=== PATIENT | male | born 1955 | race African-American/Black ===

== ENCOUNTER → 2018-03-06 | Outpatient (CLI) | payer SELFPAY ==
--- NOTE | 2018-03-06 14:45 | Diagnostic Imaging Report ---
Exam: Brain MRI without IV contrast History: Headache Comparison studies: None Technique: Sagittal and axial T2 FS, axial DWI, axial T2*GRE, axial T1 FLAIR and axial coronal T2 FLAIR. Intravenous contrast: None Findings: Scalp: Normal in signal. No masses. Bone marrow: Normal in signal intensity. Brain sulci: Appropriate for age. Ventricles: Mild compensatory dilatation. There is an anatomical variant cavum septum pellucid and cavum vergae. Extra axial spaces: No mass, no fluid collection. Parenchyma: No mass, hemorrhage or acute ischemia. A few scattered and mildly confluent T2 FLAIR hyperintense foci in the supratentorial white matter are nonspecific most compatible with chronic microvascular ischemic changes. Suprasellar region: No abnormalities. Craniocervical junction: Patent foramen magnum. No Chiari malformation. Vessels: Normal flow-voids in the arteries and sinuses. Incidental findings: Moderate nonspecific inflammatory mucosal thickening in the left maxillary sinus with small layering hyperdense. Mild mucosal thickening in the ethmoids and right maxillary sinus. IMPRESSION: 1. Mild generalized volume loss. 2. Moderate chronic microvascular ischemic changes. 3. Inflammatory changes in the paranasal sinuses. Signed by: Dr. Jaya Perez M.D. on 03/06/2018 2:41 PM
== END ==
LOC: MRI 11:07
PROVIDERS: ATTEND Emergency Medicine
DX: G43.909 Migraine, unspecified, not intractable, without status migrainosus (principal)
CPT/HCPCS: 70551

== ENCOUNTER → 2021-12-10 | Outpatient (CLI) | payer MEDICARE ==
[2021-12-10 12:33] LABS: BASOPHILS % 0.6 % (0.0-1.0); EOSINOPHILS % 14.8 % (0.0-6.0); HEMATOCRIT 40.1 % (38.2-49.6); HEMOGLOBIN 11.8 g/dL (14.0-18.0); LYMPHOCYTES # (AUTO) 2.4 (1.0-3.2); LYMPHOCYTES % 35.6 % (18.0-39.1); MEAN CORPUSCULAR HEMOGLOBIN 22.7 pg (28-32); MEAN CORPUSCULAR HGB CONC 29.4 g/dL (31-35); MEAN CORPUSCULAR VOLUME 77.1 fL (81-99); MONOCYTES # (AUTO) 0.7 (0.2-0.8); MONOCYTES % 10.3 % (4.4-11.3); NEUTROPHILS # (AUTO) 2.6 (2.1-6.9); NEUTROPHILS % 38.6 % (38.7-80.0); PLATELET COUNT 234 x10e3/uL (140-360); RED CELL DISTRIBUTION WIDTH 15.5 % (11.7-14.4)
[2021-12-10 12:43] LABS: CLARITY,URINE CLEAR (CLEAR); COLOR,URINE YELLOW (YELLOW); KETONES,URINE NEGATIVE (NEGATIVE); LEUKOCYTE ESTERASE ,URINE NEGATIVE (NEGATIVE); NITRITE,URINE NEGATIVE (NEGATIVE); PROTEIN,URINE DIPSTICK NEGATIVE (NEGATIVE); URINE UROBILINOGEN 0.2 mg/dL (0.2 - 1)
[2021-12-10 13:03] LABS: BACTERIA,URINE RARE /HPF; EPITHELIAL CELLS,URINE RARE /LPF; RBC,URINE 0-5 /HPF (0-5); WBC,URINE (MAN) 0-5 /HPF (0-5)
[2021-12-10 13:04] LABS: MUCUS,URINE FEW (RARE)
[2021-12-10 13:11] LABS: ALBUMIN 3.8 g/dL (3.5-5.0); ANION GAP 13.7 mmol/L (8-16); CALCIUM 8.8 mg/dL (8.4-10.2); CHOL/HDL RATIO 3.6 (3.9-4.7); CREATININE, SERUM 0.93 mg/dL (0.72-1.25); POTASSIUM 3.7 mmol/L (3.5-5.1)
[2021-12-10 13:31] LABS: FREE T4 (FREE THYROXINE) 0.91 ng/dL (0.8-1.8); THYROID STIMULATING HORMONE 0.987 uIU/mL (0.350-4.940)
[2021-12-12 17:36] LABS: PROSTATE SPECIFIC AG TOTAL 0.9 ng/mL (0.0-4.0); PSA FREE 0.38 ng/mL
== END ==
LOC: LAB 12:15
PROVIDERS: ATTEND Emergency Medicine
DX: Z00.00 Encounter for general adult medical examination without abnormal findings (principal); N28.89 Other specified disorders of kidney and ureter; I10 Essential (primary) hypertension; N40.0 Benign prostatic hyperplasia without lower urinary tract symptoms; E78.5 Hyperlipidemia, unspecified; E66.9 Obesity, unspecified
CPT/HCPCS: 36415; 80053; 80061; 81001; 84153; 84439; 84443; 85025; 87086

== ENCOUNTER → 2021-12-21 | Outpatient (CLI) | payer MEDICARE ==
[~2021-12-21] MED LIST: GADOBENATE DIMEGLUMINE 1 ML IV ONE
== END ==
LOC: MRI 07:42
PROVIDERS: ATTEND Emergency Medicine
DX: N28.89 Other specified disorders of kidney and ureter (principal)
CPT/HCPCS: 74183; A9577

== ENCOUNTER → 2022-05-20 | Outpatient (CLI) | payer MEDICARE ==
[~2022-05-20] MED LIST changes: -GADOBENATE DIMEGLUMINE 1 ML IV ONE; +IOPAMIDOL 370 MG/ML 100 ML INFUS..BTL INJ ONE
[2022-05-20 15:14] LABS: CREATININE, SERUM 1.01 mg/dL (0.72-1.25)
== END ==
LOC: CT 14:22
PROVIDERS: ATTEND Emergency Medicine
DX: R10.9 Unspecified abdominal pain (principal)
CPT/HCPCS: 36415; 74177; 82565; 84520; Q9967